=== PATIENT | male | born 1975 | race Caucasian/White ===

== ENCOUNTER 2020-08-10 08:15 | Emergency (ER) | payer BC ==
[2020-08-10] MEDS ORDERED: Lidocaine 1% with EPINEPHrine 1:100,000 10 ML MDV INJECT ONE (08:26)
[2020-08-10] MEDS ORDERED: Diphtheria,Pertussis(Acell),Tetanus Vaccine 0.5 ML Syringe IM ONE (08:28)
[2020-08-10] MEDS ORDERED: Lidocaine 1% with EPINEPHrine 1:100,000 20 ML MDV ONE (08:31)
[2020-08-10] MEDS ORDERED: Lidocaine 1% with EPINEPHrine 1:100,000 20 ML MDV INJECT ONE (08:33)
--- NOTE | 2020-08-10 08:40 | EDM.PDOC ---
ED HPI GENERAL MEDICAL PROBLEM - General Chief Complaint: Laceration Stated Complaint: HEAD INJURY Time Seen by Provider: 08/10/20 08:15 - History of Present Illness INITIAL COMMENTS - FREE TEXT/NARRATIVE: Otherwise well 45-year-old male presents with right eyebrow laceration. Patient was trying to move his boat out of his garage when he slipped and caught his right eyebrow on his work bench. No headache no LOC no dizziness no neck pain no chest pain no other symptoms. Patient had ice on it for some time realized he needed stitches and came to the ER. Last tetanus was in 2007 related to a table saw injury. Bleeding was controlled with direct pressure no exacerbating or alleviating factors radiation or other associated symptoms. 2 Pain Score (Numeric/FACES): 2 - Related Data Allergies Allergy/AdvReac Type Severity Reaction Status Date / Time No Known Allergies Allergy Verified 08/10/20 08:33 Home Meds: Home Meds Allopurinol [Zyloprim] 100 mg PO 08/10/20 [History] ED ROS GENERAL - Review of Systems Review Of Systems: See Below Free Text/Narrative/Comment: General: Feels well Skin: Per HPI Eyes: No vision problems. ENT: No sore throat. Neck: No neck stiffness. Respiratory: No shortness of breath. Cardiac: No chest pain. Gastrointestinal: No nausea, vomiting or abdominal pain. Neurologic: No headache. ED EXAM, SKIN/RASH Exam: See Below Text/Narrative:: General Appearance: No acute distress, appears comfortable Skin: No rash HEENT: Normocephalic, sclera anicteric, mucous membranes moist, 4 cm L-shaped laceration through the right eyebrow no active bleeding no retained foreign body on close inspection patient in evaluation with good anesthesia and hemostasis. Neck: Normal range of motion Musculoskeletal: No edema or tenderness Neurologic: Awake, alert, no obvious deficits, moving all extremities Psychiatric: Appropriate, cooperative ED SKIN PROCEDURES - Laceration/Wound Repair Right Face Progress/Comments: Laceration Repair Procedure Location: Right eyebrow Length: 4 cm Suture size and type: 1 deep 4-0 Vicryl and 9 superficial 6-0 Prolene stitches Complexity: Simple Time out: Yes, confirmed patient, place, procedure correct Consent: Verbal Suture technique: Simple interrupted Procedure: The wound was irrigated copiously with normal saline or sterile water. Close inspection revealed no evidence for retained foreign bodies. Anesthesia was achieved using lidocaine. Sutures were placed using the above technique with approximation of the wound edges. Sterile dressing was applied to the closed wound. Complications: None Performed by: Dayday Burnett MD Course - Vital Signs Last Recorded V/S: Last Vital Signs Temp 97.9 F 08/10/20 09:25 Pulse 79 08/10/20 09:25 Resp 16 08/10/20 09:25 BP 121/86 08/10/20 09:25 Pulse Ox 97 08/10/20 09:25 - Orders/Labs/Meds Meds: Medications Discontinued Medications Generic Name Dose Route Start Last Admin Trade Name Freq PRN Reason Stop Dose Admin Diphtheria/Tetanus/Acell Pertussis 0.5 ml 08/10/20 08:28 08/10/20 08:34 Diphtheria,Pertussis(Acell),Tetanus Vaccine 0.5 Ml Syringe IM 08/10/20 08:29 0.5 ml .ONCE ONE Administration Lidocaine/Epinephrine 10 ml 08/10/20 08:26 08/10/20 08:34 Lidocaine 1% With Epinephrine 1:100,000 10 Ml Mdv INJECT 08/10/20 08:27 Not Given ONETIME ONE Lidocaine/Epinephrine Confirm 08/10/20 08:31 08/10/20 08:34 Lidocaine 1% With Epinephrine 1:100,000 20 Ml Mdv Administered 08/10/20 08:32 Not Given Dose 20 ml .ROUTE .STK-MED ONE Lidocaine/Epinephrine 20 ml 08/10/20 08:33 08/10/20 08:34 Lidocaine 1% With Epinephrine 1:100,000 20 Ml Mdv INJECT 08/10/20 08:34 20 ml ONETIME ONE Administration Departure - Departure Time of Disposition: 09:11 Disposition: Home, Self-Care 01 Condition: Good Clinical Impression: Laceration of eyebrow - Discharge Information *PRESCRIPTION DRUG MONITORING PROGRAM REVIEWED*: Not Applicable *COPY OF PRESCRIPTION DRUG MONITORING REPORT IN PATIENT RONDA: Not Applicable Instructions: Laceration Care, Adult Referrals: PCP,None [Primary Care Provider] - Forms: ED Department Discharge Additional Instructions: The stitches under the surface of the cut will dissolve. However, the 9 surface stitches will need to be removed in 5 days. Please keep the wound clean and dry for the next 24 hours. After that you can wash your face gently with a nonmedicated soap. Do not apply any lotions to the area. You could use an antibiotic ointment if you like but do not use an ointment containing neomycin. Please do not submerge the cut in water until the stitches are taken out. This can be done through your primary care doctor's office or here in the ER. The following information is given to patients seen in the emergency department who are being discharged to home. This information is to outline your options for follow-up care. We provide all patients seen in our emergency department with a follow-up referral. The need for follow-up, as well as the timing and circumstances, are variable d epending upon the specifics of your emergency department visit. If you don't have a primary care physician on staff, we will provide you with a referral. We always advise you to contact your personal physician following an emergency department visit to inform them of the circumstance of the visit and for follow-up with them and/or the need for any referrals to a consulting specialist. The emergency department will also refer you to a specialist when appropriate. This referral assures that you have the opportunity for follow-up care with a specialist. All of these measure are taken in an effort to provide you with optimal care, which includes your follow-up. Under all circumstances we always encourage you to contact your private physician who remains a resource for coordinating your care. When calling for follow-up care, please make the office aware that this follow-up is from your recent emergency room visit. If for any reason you are refused follow-up, please contact the [facility] Emergency Department at and asked to speak to the emergency department charge nurse. Sepsis Event Note (ED) - Focused Exam Vital Signs: Vital Signs Temp Pulse Resp BP Pulse Ox 08/10/20 09:25 97.9 F 79 16 121/86 97 08/10/20 08:27 98.2 F 81 18 123/89 97 - Assessment/Plan Assessment:: 45-year-old male presenting with complicated right eyebrow laceration no sign of deep structure injury no sign of other trauma. Tetanus will need to be updated laceration repaired as documented.
== END 2020-08-10 09:23 | disposition home or self-care (01) ==
LOC: MW.ED 08:15
DX: S01.111A Laceration without foreign body of right eyelid and periocular area, initial encounter (principal); Z23 Encounter for immunization; W01.198A Fall on same level from slipping, tripping and stumbling with subsequent striking against other object, initial encounter; Y92.59 Other trade areas as the place of occurrence of the external cause
CPT/HCPCS: 12013; 90471; 90715; 99282; 99282-25

== ENCOUNTER 2020-08-15 20:25 | Emergency (ER) | payer BC | END 2020-08-15 20:45 | disposition home or self-care (01) | LOC: MW.ED 20:25 | DX: S01.111D Laceration without foreign body of right eyelid and periocular area, subsequent encounter (principal); X58.XXXD Exposure to other specified factors, subsequent encounter | CPT/HCPCS: 99281 ==

== ENCOUNTER 2021-06-01 02:26 | Emergency (ER) | payer BC, OTHER ==
[2021-06-01] MEDS ORDERED: Acetaminophen/HYDROcodone 325-5 MG Tab PO ONE (02:37)
[2021-06-01] MEDS ORDERED: Pantoprazole 40 MG Tab.CR PO STA (02:38)
[2021-06-01 03:42] LABS: BLOOD UREA NITROGEN,BUN 11 mg/dL (7.0-18.0); CARBON DIOXIDE,CO2 26.2 mmol/L (21.0-32.0); CHLORIDE,CL 104 mmol/L (98-107); GLUCOSE RANDOM 97 mg/dL (74-106); POTASSIUM,K 3.8 mmol/L (3.5-5.1); SODIUM,NA 142 mmol/L (136-148)
== END 2021-06-01 04:17 | disposition home or self-care (01) ==
LOC: MW.ED 02:26
DX: M25.531 Pain in right wrist (principal); M10.9 Gout, unspecified
CPT/HCPCS: 36415; 73100; 80053; 85025; 99283; A9270

== ENCOUNTER 2023-04-25 11:09 | Day surgery (SDC) | payer OTHER ==
[~2023-04-25 11:09] MED LIST: Lactated Ringers 1,000 ML IV SCH
[2023-04-25] MEDS ORDERED: propofoL 50 ML ONE (11:46)
[2023-04-25] MEDS ORDERED: Ondansetron 4 MG/2 ML SDV ONE (11:57)
[2023-04-25] MEDS ORDERED: fentaNYL 100 MCG/2 ML SDV ONE (12:01)
[2023-04-25] MEDS ORDERED: Lidocaine 2% 5 ML SDV ONE (12:03)
[2023-04-25] MEDS ORDERED: Propofol 200 MG/20 ML SDV ONE (12:13)
[2023-04-25] MEDS ORDERED: Lactated Ringers 1,000 ML IV SCH (12:30)
== END 2023-04-25 12:55 | disposition home or self-care (01) ==
LOC: MW.SDS 11:09
PROVIDERS: ATTEND Surgery
DX: Z12.11 Encounter for screening for malignant neoplasm of colon (principal); E78.5 Hyperlipidemia, unspecified; G47.30 Sleep apnea, unspecified; M10.9 Gout, unspecified; E66.9 Obesity, unspecified; Z68.32 Body mass index [BMI] 32.0-32.9, adult; F17.220 Nicotine dependence, chewing tobacco, uncomplicated; F17.290 Nicotine dependence, other tobacco product, uncomplicated; Z79.899 Other long term (current) drug therapy
CPT/HCPCS: 45380; J2405; J2704; J3010; J7120; 00811; J3490